=== PATIENT | male | born 1990 | race African-American/Black ===

== ENCOUNTER 2018-09-24 13:11 | Emergency (ER) | payer SELFPAY ==
[~2018-09-24] VITALS: Ht 175.3 cm; Wt 87.0 kg
[2018-09-24] MEDS ORDERED: ONDANSETRON HCL 4MG/2ML INJ IV STA (15:05)
[2018-09-24] MEDS ORDERED: KETOROLAC 30MG/ML VIAL IV STA (15:05)
[2018-09-24] MEDS ORDERED: CEFTRIAXONE 1 G PREMIX 50 ML IV ONE (15:15)
[2018-09-24] MEDS ORDERED: SODIUM CHLORIDE 0.9% 1000ML BAG (SEPSIS BOLUS) IV ONE (15:15)
[2018-09-24] MEDS ORDERED: ACETAMINOPHEN 650MG/20.3ML UDC PO ONE (16:00)
[2018-09-24 16:11] LABS: CHLORIDE 96 mEq/L (98-107)
[2018-09-24 16:12] LABS: HEMATOCRIT. 48.3 % (42.0-52.0); INR 1.1; MEAN CORPUSCULAR HEMOGLOBIN 26.9 pg (28.0-32.0); MEAN CORPUSCULAR VOLUME 81.1 fL (80.0-94.0); PLATELET 304 x1000/uL (130-400); PROTHROMBIN TIME 11.5 sec (9.1-11.1); RED BLOOD CELL COUNT 5.96 mill/uL (4.7-6.1); RED CELL DISTRIBUTION WIDTH 13.2 % (11.6-14.6)
[2018-09-24 16:38] LABS: PLATELET ESTIMATE NORMAL
[2018-09-24 20:20] VITALS: BP 124/85
== END 2018-09-24 20:20 | disposition home or self-care (01) ==
LOC: ER 13:11 → CANBEDREQ 09-25 04:38
DX: J09.X2 Influenza due to identified novel influenza A virus with other respiratory manifestations (principal)
CPT/HCPCS: 36415; 71045; 80053; 83605; 84145; 84484; 85025; 85610; 87040; 87804; 93005; 96365; 96375; 99284; J0696; J1885; J2405; J7030